=== PATIENT | female | born 1970 | race Caucasian/White ===

== ENCOUNTER 2024-02-22 20:02 | Inpatient (IN) | payer BC, SELFPAY ==
--- NOTE | ~2024-02-22 | XR_ITS ---
EXAMINATION: XR FOOT, LEFT CLINICAL INFORMATION: Redness, evaluation of osteomyelitis. COMPARISON: None available. TECHNIQUE: AP, lateral, and oblique views of the left foot. FINDINGS: Diffuse soft tissue swelling with suggestion of more localized prominent thickening around the distal first toe. Equivocal minimal cortical irregularity at the tuft of the distal phalanx of the first toe. No unexpected radiopaque foreign bodies. XR/XR foot LT 2V IMPRESSION: Equivocal minimal cortical irregularity at the tuft of the distal phalanx of the first toe with overlying soft tissue thickening which could be related with osteomyelitis. Recommend additional characterization with MRI as clinically warranted. Electronically signed by: Jenna Warner MD 02/22/2024 10:34 PM EST
--- NOTE | ~2024-02-22 | MR_ITS ---
EXAMINATION: MR FOOT WITHOUT AND WITH CONTRAST, LEFT CLINICAL INFORMATION: First toe distal phalangeal pain. Evaluate for osteomyelitis. COMPARISON: Left foot radiographs dated 02/22/2024. TECHNIQUE: MRI of the left foot was performed before and after the intravenous administration of 7.5 mL Gadavist on a high-field scanner. FINDINGS: Mild soft tissue enhancement within the great toe nailbed with mild distal skin thickening which could represent mild cellulitis. No organized fluid collection or abscess formation. No adjacent marrow edema or enhancement to suggest acute osteomyelitis. No metatarsal stress reaction or fracture. Articular cartilage thinning with a focal full-thickness defect at the first metatarsal head where there is subchondral cystic change and marrow edema measuring up to 0.5 cm. Small marginal osteophytes. No concerning lytic or blastic osseous lesion. The visualized flexor and extensor tendons are intact. No transverse tendon tear or tendon retraction. Intact Lisfranc ligament. Dorsal subcutaneous edema without enhancement or abscess formation. No forefoot neuroma. MR/MR foot LT wo/w con IMPRESSION: 1. Mild soft tissue enhancement within the great toe nailbed with mild distal skin thickening, which could represent mild cellulitis. No abscess formation. No adjacent marrow edema or enhancement to suggest acute osteomyelitis. 2. Mild osteoarthritis at the first metatarsophalangeal joint. 3. Dorsal subcutaneous edema without enhancement or abscess formation. Electronically signed by: Eugenio Lancaster MD 02/24/2024 09:29 AM VERNON
[2024-02-22 20:12] VITALS: BP 168/89; PULSE 70; RESP 20; TEMP 36.3; O2SAT 98; BMI 28.3
--- NOTE | 2024-02-22 20:20 | ED.GENADULT ---
HPI - General Adult General Chief complaint: Skin/Abscess/Foreign Body Stated complaint: L Foot Infection Spreading to Leg Time Seen by Provider: 02/23/24 01:41 Source: patient Mode of arrival: ambulatory Limitations: no limitations History of Present Illness ED Provider: DR. Serrano HPI narrative: [age] year female came in for evaluation of left foot infection, initially was diagnosed with athletic foot and fungal infection at the dorsum of the left foot, patient noticed spreading of redness and hotness up to the left ankle now, no fever, no chills, no discharge, have ulcerative lesion at the dorsum of the left foot at the base of the 1st toe. No discharge. Related Data Home Medications ?Medication ?Instructions ?Recorded ?Confirmed No Known Home Meds 02/23/24 02/23/24 Allergies Allergy/AdvReac Type Severity Reaction Status Date / Time itraconazole Allergy Unknown Verified 02/22/24 20:22 terbinafine Allergy Unknown Verified 02/22/24 20:22 Review of Systems Review of Systems: All other systems are reviewed and are negative Constitutional: Reports as per HPI and Reports no additional constitutional complaints Eyes: Reports as per HPI and Reports no additional eye complaints Reports system reviewed and no additional complaints, except as documented Cardiovascular: Reports as per HPI and Reports no additional cardiovascular complaints Respiratory: Reports as per HPI and Reports no additional respiratory complaints Gastrointestinal: Reports as per HPI and Reports no additional gastrointestinal complaints Genitourinary: Reports no additional female genitourinary complaints Musculoskeletal: Reports no additional musculoskeletal complaints Skin/Breast: Reports system reviewed and no additional complaints, except as docu Psychiatric: Reports no additional psychiatric complaints Endocrine: Reports no additional endocrine complaints Hematologic/Lymphatic: Reports no additional hematologic/lymphatic complaints Allergic/Immunologic: Reports no additional allergic/immunologic complaints Reports system reviewed and no additional complaints, except as documented and Reports Abnormal speech present [facility] Past Medical History Medical History (Updated 02/23/24 @ 03:44 by Elisabeth Cardenas MD) Tobacco dependence No known health problems Social History Social History Patient Tobacco Use Status: Current everyday Tobacco user Smoked in Last 30 Days: Yes Use of substances other than those prescribed or required for medical reasons: No Any prior treatment program specific to substance use: No Advance Directives: No Advance Directives Information Provided: No Nutrition Risks: No Nutritional Risk Patient : No Physical Exam ED Vital Signs: Vital Signs - 24 hr 02/22/24 20:12 02/23/24 00:47 02/23/24 01:59 Temperature 97.4 F 97.0 F 97.8 F Pulse Rate 70 58 58 Respiratory Rate 20 16 16 Blood Pressure 168/89 H 178/87 H 193/82 H Pulse Oximetry 98 100 98 Oxygen Delivery Method Room Air Room Air Room Air BMI result Body Mass Index 28.3 Vital signs have been reviewed and appear to be correct. Blood pressure elevated. Heart rate normal. Respiratory rate normal. Temperature normal. Oxygen saturation normal. Appearance: Alert. Oriented X3. No acute distress. Head: Normal external exam. Normocephalic. Atraumatic. No Guzman signs noted. No raccoon eyes noted Eyes: PERRLA. EOMI. Conjunctiva and sclera normal. Eyelids normal. ENT: TM's Normal. Pharynx normal. Uvula midline. Moist mucous membranes. No trismus noted. No drooling noted. No muffled voice noted. Neck: Normal inspection. Neck supple. FROM. No adenopathy. Thyroid Normal. No meningeal signs. No neck mass noted. CVS: Normal heart rate and rhythm. Heart sound normal. No murmurs noted. Pulses normal throughout. Respiratory: No respiratory distress. Painless inspiration. Breath sounds normal. No wheezes/rales/rhonchi noted. Chest nontender. No accessory muscle usage noted or decreased air movement noted. Abdomen: Soft and nontender. Bowel sounds normal in all 4 quadrants. No distention noted. No organomegaly noted. No visible injury noted. Back: No CVA tenderness. Full range of motion noted. Skin: Skin warm and dry. Normal skin color. Normal skin turgor. No rashes/lesions/lacerations noted. Extremities: Redness, hotness spread to the left ankle, ulcerative lesion on the dorsum of the left foot. Neuro: Oriented X 3. Cranial nerve exam: II-XII are grossly intact No motor deficit. No sensory deficit. Reflexes normal. Course Course Course Narrative: RME: DOne by LAZ Kerr. 54-year-old female presents to ED for left foot fungal rash with now superimposed redness and foot swelling. Patient states history of at least foot. Physical exam foot positive for toe fungus and plantar fungal rash with open wound. Surrounding redness or dorsal aspect going up ankle. No calf pain. Labs chest x-ray ordered Reevaluation(s) Reevaluation #1: 54-year-old female with left side foot fungal infection, came in today for spreading of cellulitis up to the ankle, x-ray is questioning osteomyelitis of the 1st toe. Time: 01:45 Medications Administered Generic Name Dose Route Start Last Admin Trade Name Freq PRN Reason Stop Dose Admin Amlodipine Besylate 5 mg 02/23/24 03:25 02/23/24 03:45 Amlodipine Besylate 5 Mg Tablet PO 5 mg DAILY ALTAF Administration Protocol Clotrimazole 1 appl 02/23/24 09:00 02/23/24 07:51 Clotrimazole 1 % Cream 15 Gm Tube TOPICAL 1 appl BID ALTAF Administration Protocol Enoxaparin Sodium 40 mg 02/23/24 09:00 02/23/24 07:52 Enoxaparin Sodium 40 Mg/0.4 Ml Syringe SUBCUT Not Given Q24H ALTAF Piperacillin Sod/Tazobactam 50 mls @ 100 mls/hr 02/23/24 08:00 02/23/24 07:51 Sod 3.375 gm/ Sodium Chloride IV 100 mls/hr Q6H ALTAF Administration Discontinued Medications Generic Name Dose Route Start Last Admin Trade Name Freq PRN Reason Stop Dose Admin Piperacillin Sod/Tazobactam 50 mls @ 100 mls/hr 02/23/24 01:41 02/23/24 03:11 Sod 3.375 gm/ Sodium Chloride IV 02/23/24 02:10 Infused ONCE ONE Infusion Vancomycin HCl 1,000 mg/ 270 mls @ 270 mls/hr 02/23/24 01:41 02/23/24 05:00 Sodium Chloride IV 02/23/24 02:40 Infused ONCE ONE Infusion Ketorolac Tromethamine 30 mg 02/23/24 03:16 02/23/24 03:45 Ketorolac Tromethamine 30 Mg/Ml Vial IVPUSH 02/23/24 03:17 30 mg ONCE ONE Administration Medical Decision Making Differential Diagnosis Differential Diagnoses: The differential diagnosis associated with the presentation includes (Cellulitis, osteomyelitis.) Admission/Observation Consideration of admission/observation: Escalation of care including admission/observation considered Consult Healthcare Provider Management of the patient was discussed with: Hospitalist (Dr. Walters) Lab Data MDM Lab Attestation statement: I reviewed the patient's lab results. 02/23/24 05:26 02/23/24 05:26 Labs: Lab Results 02/22/24 02/23/24 Range/Units 20:36 02:08 WBC 12.0 H (4.8-10.8) X10*3/uL RBC 4.46 (4.20-5.50) X10*6/uL Hgb 14.3 (12.0-16.0) g/dl Hct 41.7 (37.0-47.0) % MCV 93.5 (80.0-98.0) fL MCH 32.1 (27.0-33.0) pg MCHC 34.3 (31.0-35.0) g/dl RDW 13.9 (11.0-16.0) % Plt Count 226 (160-400) X10*3/uL MPV 11.1 (9.4-12.3) fL Immature Gran % (Auto) 0.3 (0.0-0.4) % Neut % (Auto) 62.5 (45-73) % Lymph % (Auto) 23.4 (20-40) % [place] % (Auto) 7.5 (2-11) % Eos % (Auto) 5.6 H (0-4) % Baso % (Auto) 0.7 (0-2) % Lymph # (Auto) 2.8 (1.2-4.9) X10*3/uL [place] # (Auto) 0.9 (0.1-1.2) X10*3/uL Eos # (Auto) 0.7 H (0.0-0.4) X10*3/uL Baso # (Auto) 0.1 (0.0-0.2) X10*3/uL Abs Immat Gran (auto) 0.04 H (0.00-0.03) X10*3/uL Absolute Neuts (auto) 7.5 (2.0-8.3) x10*3/uL Absolute Nucleated RBC 0.000 (0.0-0.012) X10*3/uL Nucleated RBC % (auto) 0.0 (0.0-0.2) /100WBC ESR 5 (0-20) MM/HR Sodium 143 (135-145) mmol/L Potassium 3.9 (3.3-5.1) mmol/L Chloride 110 H (96-108) mmol/L Carbon Dioxide 25 (22-29) mmol/L Anion Gap 12 (12-20) BUN 25 H (9-16) mg/dL Creatinine 0.80 (0.5-1.4) mg/dL Estim Creat Clear Calc 83.5 Estimated GFR > 60 Random Glucose 95 (60-115) mg/dL Lactic Acid 0.6 (0.5-2.0) mmol/L Calcium 9.8 (8.4-10.2) mg/dL Total Bilirubin 0.2 (0.0-1.0) mg/dL AST 16 (5-31) U/L ALT 16 (0-31) U/L Alkaline Phosphatase 75 (39-117) U/L C-Reactive Protein 0.45 (< or = 0.50) mg/dL Total Protein 7.1 (6.5-8.0) g/dL Albumin 4.0 (3.5-5.0) g/dL Independent Interpretation I performed an independent interpretation of an: Plain X-Ray (Left foot:Equivocal minimal cortical irregularity at the tuft of the distal phalanx of the first toe with overlying soft tissue thickening which could be related with osteomyelitis. Recommend additional characterization with MRI as clinically warranted.) Radiology Impression Discussion of test interpretation with radiology: I have reviewed the radiologist's reading. Discharge Plan Discharge Clinical Impression: Cellulitis of foot, left Patient Disposition: Admitted As Inpatient
[2024-02-22 20:40] LABS: MANUAL DIFF FLAG NO
[2024-02-22 20:42] LABS: Basophils Absolute Auto 0.1 X10*3/uL (0.0-0.2); Basophils Percent Auto 0.7 % (0-2); Eosinophils Absolute Auto 0.7 X10*3/uL (0.0-0.4); Eosinophils Percent Auto 5.6 % (0-4); Hematocrit 41.7 % (37.0-47.0); Hemoglobin 14.3 g/dl (12.0-16.0); Imm Gran Abs Auto 0.04 X10*3/uL (0.00-0.03); Imm Gran Pct Auto 0.3 % (0.0-0.4); Lymphocytes Absolute Auto 2.8 X10*3/uL (1.2-4.9); Lymphocytes Percent Auto 23.4 % (20-40); Mean Corpuscular HGB Conc 34.3 g/dl (31.0-35.0); Mean Corpuscular Hemoglobin 32.1 pg (27.0-33.0); Mean Corpuscular Volume 93.5 fL (80.0-98.0); Mean Platelet Volume 11.1 fL (9.4-12.3); Monocytes Absolute Auto 0.9 X10*3/uL (0.1-1.2); Monocytes Percent Auto 7.5 % (2-11); Neutrophils Absolute Auto 7.5 x10*3/uL (2.0-8.3); Neutrophils Percent Auto 62.5 % (45-73); Platelet Count 226 X10*3/uL (160-400); Red Blood Count 4.46 X10*6/uL (4.20-5.50); Red Cell Distribution Width 13.9 % (11.0-16.0)
[2024-02-22 20:55] LABS: Alanine Aminotransferase 16 U/L (0-31); Alkaline Phosphatase 75 U/L (39-117); Anion Gap 12 (12-20); Aspartate Amino Transferase 16 U/L (5-31); Bilirubin Total 0.2 mg/dL (0.0-1.0); Blood Urea Nitrogen 25 mg/dL (9-16); C Reactive Protein 0.45 mg/dL (< or = 0.50); Calcium 9.8 mg/dL (8.4-10.2); Carbon Dioxide 25 mmol/L (22-29); Chloride 110 mmol/L (96-108); Creatinine Clr Calc Pharmacy 83.5; Estimated Glomerular Filt Rate > 60; Glucose Random 95 mg/dL (60-115); Potassium 3.9 mmol/L (3.3-5.1); Sodium 143 mmol/L (135-145); Total Protein 7.1 g/dL (6.5-8.0)
[2024-02-22 21:27] LABS: Erythrocyte Sedimentation Rate 5 MM/HR (0-20)
[2024-02-23] VITALS (8 sets, daily range): BP systolic 138–193; BP diastolic 70–88; PULSE 52–67; RESP 13–18; TEMP 35.8–36.8; O2SAT 95–100
--- NOTE | 2024-02-23 00:46 | PC.NURSE ---
Pt ambulatory to 22H from waiting room. Assumed care of pt at this time. A&Ox3 skin pwd respirations even unlabored. Endorsing athletes foot to left foot now radiating up left ankle, swelling and redness noted. Pt reports itching foot so badly she removed skin. +csm. Awaiting primary provider fahadal, aware of plan of care.
--- NOTE | 2024-02-23 02:22 | MHC.EDTECH ---
0200 Rounding done ,vitals taken ,RN Temitope is aware of Patient high blood Pressure ,Lactic acid and both sets of blood culture drawn from different sites ,Patient got Change into hospital attire .No apparent distress noted ,Plan of care continue .
[2024-02-23] MEDS: Piperacillin Sodium/Tazobactam 3.375 GM in 0.9 % Sodium Chloride 50 ML IV ×4 (02:33→21:31)
[2024-02-23 02:35] LABS: Lactic Acid 0.6 mmol/L (0.5-2.0)
--- NOTE | 2024-02-23 02:38 | PC.NURSE ---
IV access obtained. Medicated per JUN, abx hung and infusing without difficulty. Plan for admission, pt awaiting bed assignment, aware of plan of care.
[2024-02-23] MEDS: vancomycin HCL 1,000 MG in 0.9 % Sodium Chloride 250 ML 270 MG IV (03:00)
--- NOTE | 2024-02-23 03:23 | P.HPHOSP_ITS ---
History of Present Illness Date of Service: 02/23/24 Attending physician on admission: Elisabeth Cardenas Chief Complaint: Left foot swelling Emely Venegas is a very pleasant 54 years old woman with no significant past medical history presents to the emergency department complaining of one-week history of left foot (plantar) itching, blistering and swelling. She does not have too much pain associated to it. She denies fever, chills, nausea or vomiting. She did not report any acute cardiopulmonary, gastrointestinal genitourinary symptoms. She is a tobacco smoker -1 pack per day. Denied alcohol abuse or illicit drug use. In the ED, she was found to have hypertension. Last blood pressure is 193/83. Other vital signs are normal. Blood workup showed leukocytosis of 12.0. There is no lactic acidosis. There is eosinophilia. Hemoglobin and platelets are normal. CRP and ESR are normal. Blood workup showed no significant electrolyte imbalances. BUN is 25. LFTs are normal. Left x-ray showed equivocal minimal cortical irregularities at the tuft of the distal phalanx of the 1st toe with underlying soft tissue thickening which could represent with osteomyelitis. ED tx: Zosyn 3.325 g IV, vancomycin 1 g IV. Review of Systems 2 Review of Systems: All 12 systems were reviewed and normal except as noted in HPI. [facility] Medical History (Updated 02/23/24 @ 03:44 by Elisabeth Cardenas MD) Tobacco dependence No known health problems Social History Patient Tobacco Use Status: Current everyday Tobacco user Smoked in Last 30 Days: Yes Use of substances other than those prescribed or required for medical reasons: No Any prior treatment program specific to substance use: No Advance Directives: No Advance Directives Information Provided: No Nutrition Risks: No Nutritional Risk Patient : No Meds Allergies Allergy/AdvReac Type Severity Reaction Status Date / Time itraconazole Allergy Unknown Verified 02/22/24 20:22 terbinafine Allergy Unknown Verified 02/22/24 20:22 Active Medications: Current Medications Acetaminophen (Acetaminophen 325 Mg Tablet) 975 mg PO Q6H PRN PRN Reason: Pain, Mild (Pain Scale 1-3), fever or headache Amlodipine Besylate (Amlodipine Besylate 5 Mg Tablet) 5 mg PO DAILY ALTAF; Protocol Calcium Carbonate (Calcium Carbonate 750 Mg Tab.Chew) 750 mg PO Q4H PRN PRN Reason: Heartburn Clotrimazole (Clotrimazole 1 % Cream 15 Gm Tube) 1 appl TOPICAL BID ALTAF; Protocol Enoxaparin Sodium (Enoxaparin Sodium 40 Mg/0.4 Ml Syringe) 40 mg SUBCUT Q24H ALTAF Piperacillin Sod/Tazobactam (Sod 3.375 gm/ Sodium Chloride) 50 mls @ 100 mls/hr IV Q6H ALTAF Magnesium Hydroxide (Milk Of Magnesia 30 Ml Oral.Susp) 30 ml PO DAILY PRN PRN Reason: Constipation Melatonin (Melatonin 3 Mg Tablet) 6 mg PO BEDTIME PRN PRN Reason: Insomnia Pharmacy Consult (Consult Rx Vancomycin Dosing) 1 each MISCELLANE DAILY PRN PRN Reason: Consult order Sodium Chloride (0.9 % Sodium Chloride Flush 3 Ml Syringe) 3 ml IVFLUSH QSHIFT ALTAF Physical Exam 2 Vital Signs and Narrative: Vital Signs: Last Vital Signs Temp 97.8 F 02/23/24 01:59 Pulse 58 02/23/24 01:59 Resp 16 02/23/24 01:59 BP 193/82 H 02/23/24 01:59 Pulse Ox 98 02/23/24 01:59 O2 Del Method Room Air 02/23/24 01:59 BMI result Body Mass Index 28.3 Constitutional - Awake and Alert, No apparent distress. Pleasant. Cooperative. HEENT - PER, EOMI Heart - S1S2, RRR, No murmurs Lungs - Normal lung expansion, Normal respiratory effort, No respiratory distress, CTA bilaterally Abdomen - Nontenderness. - No CVA tenderness Extremities - Left foot: Plantar aspect: dermis exposed (2-3 cm area) over the base of the first toe, there is associated swelling and erythema, with minimal tenderness. No discharges. Skin - Warm/Dry Neurological - Alert & oriented x3. No focal weakness. Normal speech. Psychological - Appropriate affect Results Labs 02/22/24 20:36 02/22/24 20:36 Labs: Laboratory Results - last 24 hr 02/22/24 02/23/24 20:36 02:08 MCV 93.5 MCH 32.1 MCHC 34.3 RDW 13.9 Plt Count 226 MPV 11.1 Immature Gran % (Auto) 0.3 Neut % (Auto) 62.5 Lymph % (Auto) 23.4 [place] % (Auto) 7.5 Eos % (Auto) 5.6 H Baso % (Auto) 0.7 Lymph # (Auto) 2.8 [place] # (Auto) 0.9 Eos # (Auto) 0.7 H Baso # (Auto) 0.1 Abs Immat Gran (auto) 0.04 H Absolute Neuts (auto) 7.5 Absolute Nucleated RBC 0.000 Nucleated RBC % (auto) 0.0 ESR 5 Anion Gap 12 Estim Creat Clear Calc 83.5 Estimated GFR > 60 Random Glucose 95 Lactic Acid 0.6 Calcium 9.8 Total Bilirubin 0.2 AST 16 ALT 16 Alkaline Phosphatase 75 C-Reactive Protein 0.45 Total Protein 7.1 Albumin 4.0 Imaging Radiologist's Impressions: Impressions Foot X-Ray 02/22/24 20:19 IMPRESSION: Equivocal minimal cortical irregularity at the tuft of the distal phalanx of the first toe with overlying soft tissue thickening which could be related with osteomyelitis. Recommend additional characterization with MRI as clinically warranted. Electronically signed by: Jenna Warner MD 02/22/2024 10:34 PM EST Assessment and Plan (1) Cellulitis of foot, left: Status: Acute (2) High blood pressure: Qualifiers: Hypertension type: unspecified Qualified Code(s): I10 - Essential (primary) hypertension Status: Acute Plan Emely Venegas is a 53 y/o woman admitted with: * Left foot cellulitis associated to tenia pedis. ?Left 1st distal phalanx osteomyelitis. Normal CRP and ESR, low suspicion for osteomyelitis. Admit to hospitalist service. Continue empiric IV antibiotic therapy with Zosyn and vancomycin. Clotrimazole cream twice daily to affected area. Check left foot MRI -suggested per radiology. * Elevated blood pressure, no hx of hypertension. Start treatment with amlodipine 5 mg p.o. now then daily. Continue to monitor blood pressure. * Tobacco smoking. Tobacco cessation education. DVT prophylaxis: Lovenox Code status: Full Patient will need hospitalization for at least 2 midnights for left foot cellulitis associated to tinea pedis treatment with antifungal agents and IV antibiotics. Patient will need left foot MRI to assess for 1st toe osteomyelitis. Quality Stroke Does the patient have a stroke diagnosis?: No VTE Prior VTE?: No VTE Risk Level:: Medical - moderate - high VTE Device Contraindication: Treatment Not Indicated VTE Drug Contraindication: N/A - Med Ordered
[2024-02-23] MEDS: amLODIPine Besylate 5 MG TABLET PO (03:45)
[2024-02-23] MEDS: Ketorolac Tromethamine 30 MG/ML VIAL IVPUSH (03:45)
--- NOTE | 2024-02-23 04:30 | PC.NURSE ---
Report given to overflow, pt awaiting transport.
--- NOTE | 2024-02-23 04:49 | PC.NURSE ---
Patient transferred to overflow bed 5. Patient is alert and oriented x4, denies pain or discomfort at this time. Left foot with erythema/cellulitis LILI, patient reports was told by MD to leave sock off foot. Patient ambulated to bathroom, warm blanket provided, callbell within reach.
[2024-02-23 05:35] LABS: MANUAL DIFF FLAG NO
[2024-02-23 05:41] LABS: Basophils Absolute Auto 0.1 X10*3/uL (0.0-0.2); Basophils Percent Auto 0.5 % (0-2); Eosinophils Absolute Auto 0.5 X10*3/uL (0.0-0.4); Hematocrit 37.8 % (37.0-47.0); Hemoglobin 13.8 g/dl (12.0-16.0); Imm Gran Abs Auto 0.04 X10*3/uL (0.00-0.03); Imm Gran Pct Auto 0.4 % (0.0-0.4); Lymphocytes Absolute Auto 2.1 X10*3/uL (1.2-4.9); Lymphocytes Percent Auto 21.6 % (20-40); Mean Corpuscular HGB Conc 36.5 g/dl (31.0-35.0); Mean Corpuscular Hemoglobin 35.4 pg (27.0-33.0); Mean Corpuscular Volume 96.9 fL (80.0-98.0); Mean Platelet Volume 11.2 fL (9.4-12.3); Monocytes Absolute Auto 0.8 X10*3/uL (0.1-1.2); Monocytes Percent Auto 8.1 % (2-11); Neutrophils Absolute Auto 6.3 x10*3/uL (2.0-8.3); Neutrophils Percent Auto 64.4 % (45-73); Platelet Count 205 X10*3/uL (160-400); Red Cell Distribution Width 14.4 % (11.0-16.0); White Blood Count 9.7 X10*3/uL (4.8-10.8)
[2024-02-23 05:58] LABS: Anion Gap 10 (12-20); Blood Urea Nitrogen 19 mg/dL (9-16); Calcium 8.5 mg/dL (8.4-10.2); Carbon Dioxide 23 mmol/L (22-29); Chloride 111 mmol/L (96-108); Creatinine Clr Calc Pharmacy 87.9; Estimated Glomerular Filt Rate > 60; Glucose Random 91 mg/dL (60-115); Potassium 3.9 mmol/L (3.3-5.1); Sodium 140 mmol/L (135-145)
[2024-02-23] MEDS: Clotrimazole 1 % Cream 15 GM TUBE 1 APPL TOPICAL ×2 (07:51→21:54)
--- NOTE | 2024-02-23 07:57 | PHA.MEDREC ---
Pharmacy Consult ? Medication Reconciliation Pharmacy has completed the medication reconciliation, spoke to patient at bedside, pt denied any medication/OTC use.
[2024-02-23] MEDS: 0.9 % Sodium Chloride Flush 3 ML SYRINGE IVFLUSH ×2 (07:59→21:31)
--- NOTE | 2024-02-23 08:05 | PC.NURSE ---
Alert and oriented, denies pain or discomfort. MRI screening form completed with patient and sent to MRI/ radiology. Ate well for breakfast
[2024-02-23] MEDS: vancomycin HCL 1,500 MG in 0.9 % Sodium Chloride 500 ML 333.33 MG IV (16:00)
[2024-02-23] MEDS: NaPROXEN 500 MG TABLET PO (16:06)
--- NOTE | 2024-02-23 17:13 | PC.NURSE ---
Alert and oriented , denies pain or discomfort. oob walking to bathroom with steady gait. Vanco infusing per mar . Declined dinner tray stating is bringing her food
--- NOTE | 2024-02-23 18:01 | PC.NURSE ---
Currently in MRI
[2024-02-23] MEDS: gadobutroL 7.5 ML VIAL IVPUSH ×2 (18:08→18:35)
--- NOTE | 2024-02-23 19:00 | PC.NURSE ---
Assumed care of pt.
--- NOTE | 2024-02-24 00:48 | P.CNID_ITS ---
History of Present Illness Data of Consult Service Date: 02/23/24 Requesting physician: Sisi Nolen Primary Care Provider: Unknown Physician HPI Reason for consult: left foot erythema She presents with one week foot discomfort. She reports itchy area and rubbed it. She has open wound bottom of foot. She has no fever or chills. Review of Systems 2 Review of Systems: Yes all other systems are reviewed and are negative [facility] Past Medical History Medical History Tobacco dependence No known health problems Family History Family history: reviewed and not pertinent Social History Social History Household Members: Spouse Housing: House Do you presently have visiting nurse or other home services: No Patient Tobacco Use Status: Current everyday Tobacco user Tobacco use type: Cigarette Cigarette Packs Per Day: 1 Cigarettes Per Day: 20.0 Meds Allergies Allergy/AdvReac Type Severity Reaction Status Date / Time itraconazole Allergy Unknown Verified 02/22/24 20:22 terbinafine Allergy Unknown Verified 02/22/24 20:22 Active Medications: Current Medications Acetaminophen (Acetaminophen 325 Mg Tablet) 975 mg PO Q6H PRN PRN Reason: Pain, Mild (Pain Scale 1-3), fever or headache Amlodipine Besylate (Amlodipine Besylate 5 Mg Tablet) 5 mg PO DAILY ALTAF; Protocol Last Admin: 02/23/24 03:45 Dose: 5 mg Calcium Carbonate (Calcium Carbonate 750 Mg Tab.Chew) 750 mg PO Q4H PRN PRN Reason: Heartburn Clotrimazole (Clotrimazole 1 % Cream 15 Gm Tube) 1 appl TOPICAL BID ALTAF; Protocol Last Admin: 02/23/24 21:54 Dose: 1 appl Enoxaparin Sodium (Enoxaparin Sodium 40 Mg/0.4 Ml Syringe) 40 mg SUBCUT Q24H ALTAF Last Admin: 02/23/24 07:52 Dose: Not Given Piperacillin Sod/Tazobactam (Sod 3.375 gm/ Sodium Chloride) 50 mls @ 100 mls/hr IV Q6H ALTAF Last Infusion: 02/23/24 22:03 Dose: Infused Vancomycin HCl 1,000 mg/ (Sodium Chloride) 270 mls @ 270 mls/hr IV Q12H ALTAF Magnesium Hydroxide (Milk Of Magnesia 30 Ml Oral.Susp) 30 ml PO DAILY PRN PRN Reason: Constipation Melatonin (Melatonin 3 Mg Tablet) 6 mg PO BEDTIME PRN PRN Reason: Insomnia Naproxen (Naproxen 500 Mg Tablet) 500 mg PO Q12H PRN PRN Reason: Pain, Severe (Pain Scale 7-10) Last Admin: 02/23/24 16:06 Dose: 500 mg Pharmacy Consult (Consult Rx Vancomycin Dosing) 1 each MISCELLANE DAILY PRN PRN Reason: Consult order Sodium Chloride (0.9 % Sodium Chloride Flush 3 Ml Syringe) 3 ml IVFLUSH QSHIFT [facility] Last Admin: 02/23/24 21:31 Dose: 3 ml Home Medications ?Medication ?Instructions ?Recorded ?Confirmed ?Last Taken ?Type No Known Home Meds 02/23/24 02/23/24 Unknown History Physical Exam 2 Vital Signs: Vital Signs: Last Vital Signs Temp 97.7 F 02/23/24 23:53 Pulse 52 02/23/24 23:53 Resp 16 02/23/24 23:53 BP 138/70 02/23/24 23:53 Pulse Ox 97 02/23/24 23:53 O2 Del Method Room Air 02/23/24 23:53 BMI result Body Mass Index 28.3 Skin: Other: open wound thin layer plantar foot Results Labs 02/23/24 05:26 02/23/24 05:26 Labs: Short CBC 02/23/24 Range/Units 05:26 WBC 9.7 (4.8-10.8) X10*3/uL Hgb 13.8 (12.0-16.0) g/dl Hct 37.8 (37.0-47.0) % Plt Count 205 (160-400) X10*3/uL BMP 02/23/24 05:26 Sodium 140 Potassium 3.9 Chloride 111 H Carbon Dioxide 23 BUN 19 H Creatinine 0.76 Calcium 8.5 D Assessment and Plan (1) Cellulitis of foot, left: Status: Acute Plan Really doesnt look very remarkable but suggestion XR OM distal great toe. Check MRI. Continue Vancomycin and Zosyn ,pending above.
[2024-02-24] MEDS: Piperacillin Sodium/Tazobactam 3.375 GM in 0.9 % Sodium Chloride 50 ML IV ×2 (01:46→09:20)
[2024-02-24 03:34] VITALS: BP 148/70; PULSE 52; RESP 16; TEMP 36.5; O2SAT 96
[2024-02-24] MEDS: vancomycin HCL 1,000 MG in 0.9 % Sodium Chloride 250 ML 270 MG IV (05:56)
[2024-02-24 08:00] VITALS: BP 152/70; PULSE 50; RESP 14; TEMP 36.8; O2SAT 100
[2024-02-24] MEDS: NaPROXEN 500 MG TABLET PO (09:18)
[2024-02-24] MEDS: 0.9 % Sodium Chloride Flush 3 ML SYRINGE IVFLUSH (09:19)
[2024-02-24] MEDS: Clotrimazole 1 % Cream 15 GM TUBE 1 APPL TOPICAL (09:23)
[2024-02-24 09:33] VITALS: BP 138/68; PULSE 60; RESP 16
[2024-02-24 09:40] LABS: Estimated Glomerular Filt Rate > 60
[2024-02-24] MEDS: amLODIPine Besylate 5 MG TABLET PO (09:41)
--- NOTE | 2024-02-24 09:47 | MHC.CM.PN ---
pt lives with and fanily is independent has own ride home dc plan home no servies
--- NOTE | 2024-02-24 11:46 | P.DS_ITS ---
DS: Providers Provider Date of Service: 02/24/24 Date of admission: 02/23/24 02:35 Date of discharge: 02/24/24 Primary care physician: Unknown Physician Consults: 02/23/24 14:16 Consult to Infectious Diseases Routine Consulting Provider: [facility] Reason for consultation: foot oseto Has provider been notified: No 02/23/24 21:26 Consult to Wound Care Routine Reason for consultation: left foot cellulitis/osteomyelitis DS: Diagnosis Discharge Diagnosis (1) Cellulitis of foot, left: Status: Acute DS: Summary Hospital Course Hospital Course: from initial hpi: 54 years old woman with no significant past medical history presents to the emergency department complaining of one-week history of left foot (plantar) itching, blistering and swelling. She does not have too much pain associated to it. She denies fever, chills, nausea or vomiting. She did not report any acute cardiopulmonary, gastrointestinal genitourinary symptoms. She is a tobacco smoker -1 pack per day. Denied alcohol abuse or illicit drug use. In the ED, she was found to have hypertension. Last blood pressure is 193/83. Other vital signs are normal. Blood workup showed leukocytosis of 12.0. There is no lactic acidosis. There is eosinophilia. Hemoglobin and platelets are normal. CRP and ESR are normal. Blood workup showed no significant electrolyte imbalances. BUN is 25. LFTs are normal. Left x-ray showed equivocal minimal cortical irregularities at the tuft of the distal phalanx of the 1st toe with underlying soft tissue thickening which could represent with osteomyelitis. ED tx: Zosyn 3.325 g IV, vancomycin 1 g IV. hospital course: Patient was admitted for left foot cellulitis, there was some concern for osteomyelitis so MRI was done which did not show any osteomyelitis. Was seen by infectious disease who recommended discharged on oral antibiotics will be given 5 more days of p.o. Augmentin. For elevated blood pressure will start on amlodi pine 5 mg daily. Time Attestation Discharge Coordination Time (in mins): 34 Quality: Safe Use of Opioids Does Pt have an Active Cancer Diagnosis on the Problem List?: No Quality: Stroke Does the patient have a stroke diagnosis?: No Physical Exam Vital Signs: Vital Signs: Last Vital Signs Temp 98.3 F 02/24/24 08:00 Pulse 60 02/24/24 09:33 Resp 16 02/24/24 09:33 BP 138/68 02/24/24 09:33 Pulse Ox 100 02/24/24 08:00 O2 Del Method Room Air 02/24/24 08:00 BMI result Body Mass Index 28.3 Skin: Other: open wound thin layer plantar foot DS: Data Data Completed and Pending Labs on day of discharge: Laboratory Results - last 24 hr 02/24/24 09:23 Creatinine 0.75 Estim Creat Clear Calc 89.0 Estimated GFR > 60 Preliminary micro results at discharge 02/23/24 02:18 Blood Culture - Preliminary Blood - Venous No growth after 24 hours. 02/23/24 02:08 Blood Culture - Preliminary Blood - Venous No growth after 24 hours. Discharge Plan Discharge Anticipated Discharge Date/Time: 02/24/24 11:41 Patient Disposition: Home, Self-Care Discharge Diagnosis: cellulitis Referrals: Physician,Unknown J [Primary Care Provider] - 1 Week Discharge Medications: New amlodipine 5 mg Tablet 5 mg PO DAILY Qty: 90 0RF Protocol: Hold for SBP< HOLD for SBP < : 90 amoxicillin-pot clavulanate 875-125 mg tablet 1 tab PO Q12H Qty: 10 0RF Discharge Orders: Discharge Order (Routine); Ordered 02/24/24 Ordered By: Blayne Clark Diet: Advance to usual diet Activity on Discharge: As tolerated Stand Alone Forms: Patient Portal Discharge page Print Language: [place] Care Plan Goals: recovery Health Concerns: cellulitis Plan of Treatment: 5 days aqugmentin, start amlodipine Assessment: see above
--- NOTE | 2024-02-24 12:00 | MHC.CM.PN ---
pt dcd home self care
== END 2024-02-24 12:36 | disposition home or self-care (01) | DRG 383 ==
LOC: HO.ED 02-23 01:51 → HO.EDOVER 02-23 03:01 → HO.S3 02-23 19:52
PROVIDERS: Internal Medicine; Physician Assistant; Admitting Provider Internal Medicine; Emergency Provider Emergency Medicine; Visit Provider Internal Medicine
DX: L03.116 Cellulitis of left lower limb (principal); B35.3 Tinea pedis; F17.210 Nicotine dependence, cigarettes, uncomplicated; Z71.6 Tobacco abuse counseling; R03.0 Elevated blood-pressure reading, without diagnosis of hypertension
CPT/HCPCS: 36415; 73620; 73720; 80048; 80053; 82565; 83605; 85025; 85652; 86140; 87040; 99285; A9585; J1885; J2543; J3370; J3371

== ENCOUNTER → 2024-02-23 02:35 | Outpatient (BNV) | payer BC, SELFPAY | PROVIDERS: Admitting Provider Internal Medicine; Emergency Provider Emergency Medicine; Visit Provider Internal Medicine | DX: L03.116 Cellulitis of left lower limb (principal) | CPT/HCPCS: 99222 ==

== ENCOUNTER → 2024-02-23 02:35 | Outpatient (BNV) | payer BC, SELFPAY | PROVIDERS: Admitting Provider Internal Medicine; Emergency Provider Emergency Medicine; Visit Provider Internal Medicine | DX: L03.116 Cellulitis of left lower limb (principal) | CPT/HCPCS: 99222; 99239 ==